=== PATIENT | male | born 1970 | race Caucasian/White ===

== ENCOUNTER 2017-07-17 21:38 | Emergency (ER) | payer OTHER ==
--- NOTE | 2017-07-17 22:02 | EDM.PDOC ---
ED HPI GENERAL MEDICAL PROBLEM - General Chief Complaint: Neck Problem Stated Complaint: NECK PAIN Time Seen by Provider: 07/17/17 22:00 Source of Information: Reports: Patient - History of Present Illness INITIAL COMMENTS - FREE TEXT/NARRATIVE: HISTORY AND PHYSICAL: History of present illness: [Patient presents with neck pain on the right side right trapezius distribution actually 5 out of 10 nonradiating worsen with head movement, pain is related to a remote incident where a garage door fell on his head 16 years ago her attributed to this has no recent injury or trauma he's just been having spasms over the last few days no known injury no vertebral point tenderness no fever nausea vomiting chills sweats no chest pain shortness breath headache dizziness palpitation no bowel or urine symptoms] Review of systems: As per history of present illness and below otherwise all systems reviewed and negative. Past medical history: As per history of present illness and as reviewed below otherwise noncontributory. Surgical history: As per history of present illness and as reviewed below otherwise noncontributory. Social history: No reported history of drug or alcohol abuse. Family history: As per history of present illness and as reviewed below otherwise noncontributory. Physical exam: HEENT: Atraumatic, normocephalic, pupils reactive, negative for conjunctival pallor or scleral icterus, mucous membranes moist, throat clear, neck supple, nontender, trachea midline. Lungs: Clear to auscultation, breath sounds equal bilaterally, chest nontender. Heart: S1S2, regular, negative for clicks, rubs, or JVD. Abdomen: Soft, nondistended, nontender. Negative for masses or hepatosplenomegaly. Negative for costovertebral tenderness. Pelvis: Stable nontender. Genitourinary: Deferred. Rectal: Deferred. Extremities: Atraumatic, negative for cords or calf pain. Neurovascular unremarkable. Neuro: Awake, alert, oriented. Cranial nerves II through XII unremarkable. Cerebellum unremarkable. Motor and sensory unremarkable throughout. Exam nonfocal. Musculoskeletal no vertebral point tenderness I can reproduce spasm/appreciate spasm in her right trapezius distribution otherwise unremarkable Diagnostics: [Clinical] Therapeutics: [Cataflam Flexeril Ice] Impression: [ paraspinous muscle spasm/cervical ] Definitive disposition and diagnosis as appropriate pending reevaluation and review of above. nape Pain Score (Numeric/FACES): 10 - Related Data Allergies Allergy/AdvReac Type Severity Reaction Status Date / Time No Known Allergies Allergy Verified 07/17/17 21:51 Home Meds: Home Meds . [No Known Home Meds] 07/17/17 [History] Past Medical History - Past Health History Medical/Surgical History: Denies Medical/Surgical History Social & Family History - Family History Family Medical History: Noncontributory - Tobacco Use Smoking Status *Q: Current Every Day Smoker Years of Tobacco use: 30 Packs/Tins Daily: 1 - Recreational Drug Use Recreational Drug Use: No ED ROS GENERAL - Review of Systems Review Of Systems: ROS reveals no pertinent complaints other than HPI. ED EXAM, GENERAL - Physical Exam Exam: See Below Course - Vital Signs Last Recorded V/S: Last Vital Signs Temp 98.3 F 07/17/17 21:38 Pulse 89 07/17/17 21:38 Resp 18 07/17/17 21:38 BP 147/78 H 07/17/17 21:38 Pulse Ox 95 07/17/17 21:38 Departure - Departure Time of Disposition: 22:02 Disposition: Home, Self-Care 01 Condition: Good Clinical Impression: Muscle spasm - Discharge Information Referrals: PCP,None [Primary Care Provider] - Additional Instructions: Medication as prescribed Return if symptoms persist or worsen Follow-up with primary care in 2 weeks sooner as needed [facility] - Primary Care [address] [place] [address] The following information is given to patients seen in the emergency department who are being discharged to home. This information is to outline your options for follow-up care. We provide all patients seen in our emergency department with a follow-up referral. The need for follow-up, as well as the timing and circumstances, are variable depending upon the specifics of your emergency department visit. If you don't have a primary care physician on staff, we will provide you with a referral. We always advise you to contact your personal physician following an emergency department visit to inform them of the circumstance of the visit and for follow-up with them and/or the need for any referrals to a consulting specialist. The emergency department will also refer you to a specialist when appropriate. This referral assures that you have the opportunity for follow-up care with a specialist. All of these measure are taken in an effort to provide you with optimal care, which includes your follow-up. Under all circumstances we always encourage you to contact your private physician who remains a resource for coordinating your care. When calling for follow-up care, please make the office aware that this follow-up is from your recent emergency room visit. If for any reason you are refused follow-up, please contact the [facility] emergency department at and asked to speak to the emergency department charge nurse.
== END 2017-07-17 22:11 | disposition home or self-care (01) ==
LOC: MW.ED 21:38
DX: M62.838 Other muscle spasm (principal); F17.210 Nicotine dependence, cigarettes, uncomplicated
CPT/HCPCS: 99283

== ENCOUNTER 2017-12-20 23:49 | Observation (INO) | payer OTHER ==
--- NOTE | 2017-12-20 23:54 | EDM.PDOC ---
ED HPI GENERAL MEDICAL PROBLEM - General Chief Complaint: Abdominal Pain Stated Complaint: PAIN IN UPPER STOMACH UNDER RIBS Time Seen by Provider: 12/20/17 23:53 Source of Information: Reports: Patient History Limitations: Reports: No Limitations - History of Present Illness INITIAL COMMENTS - FREE TEXT/NARRATIVE: HISTORY AND PHYSICAL: History of present illness: 47-year-old male presenting to emergency department with c/c of upper abdominal pain 1 week. Patient states for the past week he has had worsening upper abdominal pain. It began on Sunday of last week. States that he has had some associated fever and chills with diaphoresis. Denies any chest pain, nausea, vomiting, diarrhea. Last bowel movement was last night which was hard. Denies a bloody stool or dark tarry stools. Does have a history of diabetes but secondary to weight loss is on no medications. Denies any recent foreign travel however was [place] all last week. No other close contacts have similar symptoms. No history of abdominal surgery. Currently denies any chest pain, palpitations, shortness of breath, syncopal episodes, or focal neurologic deficits. Abdomen is soft, nondistended, nonrigid, tender to palpation predominantly in the epigastric as well as left upper quadrant. Positive bowel sounds in all 4 quadrants Initial blood sugar 383 [id number]: CBC shows leukocytosis of 12,300, urinalysis unremarkable blood cultures and lactate pending H.Pylori Positive Lipase 6659 Hyponatremia 131 Review of systems: As per history of present illness and below otherwise all systems reviewed and negative. Past medical history: As per history of present illness and as reviewed below otherwise noncontributory. Surgical history: As per history of present illness and as reviewed below otherwise noncontributory. Social history: No reported history of drug or alcohol abuse. Family history: As per history of present illness and as reviewed below otherwise noncontributory. Physical exam: HEENT: Atraumatic, normocephalic, pupils reactive, negative for conjunctival pallor or scleral icterus, mucous membranes moist, throat clear, neck supple, nontender, trachea midline. Lungs: Clear to auscultation, breath sounds equal bilaterally, chest nontender. Heart: S1S2, regular, negative for clicks, rubs, or JVD. Abdomen: Soft, nondistended, epigastric tenderness. Negative for masses or hepatosplenomegaly. Negative for costovertebral tenderness. Pelvis: Stable nontender. Genitourinary: Deferred. Rectal: Deferred. Extremities: Atraumatic, negative for cords or calf pain. Neurovascular unremarkable. Neuro: Awake, alert, oriented. Cranial nerves II through XII unremarkable. Cerebellum unremarkable. Motor and sensory unremarkable throughout. Exam nonfocal. Diagnostics: CBC, CMP, UA/UC, H. pylori, lipase, CT abdomen pelvis Therapeutics: 1 L normal saline 1, Dilaudid 1 mg IV 2, famotidine 20 mg IV 1, Protonix, metronidazole, amoxicillin Impression: Hyponatremia 131 Positive H. pylori gastritis Pancreatitis acute Uncontrolled type II diabetes HgbA1C 9.1 Plan: CT abdomen did show mild retroperitoneal edema surrounding the body of the pancreas most likely representing acute pancreatitis secondary to significantly elevated lipase. I did call Dr. Iqbal, hospitalist, who agreed for admission for acute pancreatitis. In addition patient was found to be mildly hyponatremic at 131. He was also positive for H. pylori so started the patient on PPI, metronidazole, and Amoxicillin IV. Did talk with tele-pharmacy who recommended metronidazole 500 mg twice a day IV, amoxicillin 1000 mg IV twice a day, and 40 mg Protonix twice a day for IV therapy effective for H. pylori. Obviously, may switch to oral medication when able to tolerate after treatment of acute pancreatitis. In addition I did get a hemoglobin A1c secondary to patient's history of type 2 diabetes that he stated was diet-controlled. Hemoglobin A1c was 9.1 indicating uncontrolled type 2 diabetes. All the above was explained to the patient and he was admitted for acute pancreatitis. Definitive disposition and diagnosis as appropriate pending reevaluation and review of above. Abdomen Pain Score (Numeric/FACES): 8 - Related Data Allergies Allergy/AdvReac Type Severity Reaction Status Date / Time No Known Allergies Allergy Verified 12/20/17 23:59 Home Meds: Home Meds . [No Known Home Meds] 07/17/17 [History] Past Medical History - Past Health History Medical/Surgical History: Denies Medical/Surgical History Social & Family History - Family History Family Medical History: Noncontributory ED ROS GENERAL - Review of Systems Review Of Systems: ROS reveals no pertinent complaints other than HPI. ED EXAM, GENERAL - Physical Exam Exam: See Below Course - Vital Signs Last Recorded V/S: Last Vital Signs Temp 97.2 F 12/21/17 02:59 Pulse 77 12/21/17 02:59 Resp 18 12/21/17 02:59 BP 123/82 12/21/17 02:59 Pulse Ox 96 12/21/17 02:59 - Orders/Labs/Meds Orders: Active Orders 24 hr Category Date Time Status Abdomen Pelvis w Cont [CT] Stat Exams 12/21/17 00:15 Taken CULTURE BLOOD [BC] Stat Lab 12/21/17 01:07 Received CULTURE BLOOD [BC] Stat Lab 12/21/17 01:15 Received CULTURE URINE [RM] Stat Lab 12/21/17 00:28 Received LIPID PANEL [CHEM] Stat Lab 12/21/17 02:54 Ordered Sodium Chloride 0.9% [Saline Flush] Med 12/21/17 00:15 Active 10 ml FLUSH ASDIRECTED PRN Sodium Chloride 0.9% [Saline Flush] Med 12/21/17 00:15 Active 2.5 ml FLUSH ASDIRECTED PRN Sodium Chloride 0.9% [Saline Flush] Med 12/21/17 00:15 Active 2.5 ml FLUSH ASDIRECTED PRN Blood Culture x2 Reflex Set [OM.PC] Stat Oth 12/21/17 00:51 Ordered Saline Lock Insert [OM.PC] Stat Oth 12/21/17 00:15 Ordered Medication Orders Metronidazole 500 mg/ Premix 100 mls @ 100 mls/hr IV ONETIME ONE Stop: 12/21/17 04:13 Sodium Chloride (Saline Flush) 2.5 ml FLUSH ASDIRECTED PRN PRN Reason: Keep Vein Open Sodium Chloride (Saline Flush) 10 ml FLUSH ASDIRECTED PRN PRN Reason: Keep Vein Open Sodium Chloride (Saline Flush) 2.5 ml FLUSH ASDIRECTED PRN PRN Reason: Keep Vein Open Labs: Laboratory Tests 12/21/17 12/21/17 12/21/17 Range/Units 00:15 00:21 00:21 WBC 12.29 H (4.0-11.0) K/uL RBC 5.22 (4.50-5.90) M/uL Hgb 16.9 (13.0-17.0) g/dL Hct 46.7 (38.0-50.0) % MCV 89.5 (80.0-98.0) fL MCH 32.4 H (27.0-32.0) pg MCHC 36.2 (31.0-37.0) g/dL RDW Std Deviation 42.4 (28.0-62.0) fl RDW Coeff of Elroy 13 (11.0-15.0) % Plt Count 130 L (150-400) K/uL MPV 11.20 (7.40-12.00) fL Neut % (Auto) 74.0 (48.0-80.0) % Lymph % (Auto) 20.3 (16.0-40.0) % Franklin % (Auto) 4.7 (0.0-15.0) % Eos % (Auto) 0.8 (0.0-7.0) % Baso % (Auto) 0.2 (0.0-1.5) % Neut # (Auto) 9.1 H (1.4-5.7) K/uL Lymph # (Auto) 2.5 H (0.6-2.4) K/uL Franklin # (Auto) 0.6 (0.0-0.8) K/uL Eos # (Auto) 0.1 (0.0-0.7) K/uL Baso # (Auto) 0.0 (0.0-0.1) K/uL Nucleated RBC % 0.0 /100WBC Nucleated RBCs # 0 K/uL Lactate (0.20-2.00) mmol/L Sodium 131 L (136-148) mmol/L Potassium 4.1 (3.5-5.1) mmol/L Chloride 98 (98-107) mmol/L Carbon Dioxide 24.6 (21.0-32.0) mmol/L BUN 14 (7.0-18.0) mg/dL Creatinine 0.9 (0.8-1.3) mg/dL Est Cr Clr Drug Dosing 112.57 mL/min Estimated GFR (MDRD) > 60.0 ml/min Glucose 437 H (74-106) mg/dL POC Glucose 383 H (60-110) mg/dL Hemoglobin A1c (4.5-6.2) % Calcium 8.9 (8.5-10.1) mg/dL Total Bilirubin 0.5 (0.2-1.0) mg/dL AST 32 (15-37) IU/L ALT 50 (14-63) IU/L Alkaline Phosphatase 72 (46-116) U/L Total Protein 7.7 (6.4-8.2) g/dL Albumin 4.0 (3.4-5.0) g/dL Globulin 3.7 H (2.0-3.5) g/dL Albumin/Globulin Ratio 1.1 L (1.3-2.8) Lipase 6659 H (73-393) U/L Urine Color Urine Appearance Urine pH (5.0-8.0) Ur Specific Elwin (1.001-1.035) Urine Protein (NEGATIVE) mg/dL Urine Glucose (UA) (NEGATIVE) mg/dL Urine Ketones (NEGATIVE) mg/dL Urine Occult Blood (NEGATIVE) Urine Nitrite (NEGATIVE) Urine Bilirubin (NEGATIVE) Urine Urobilinogen (<2.0) EU/dL Ur Leukocyte Esterase (NEGATIVE) Urine RBC (0-2/HPF) Urine WBC (0-5/HPF) Ur Epithelial Cells (NONE-FEW) Urine Bacteria (NEGATIVE) Ethyl Alcohol mg/dL H. pylori IgG Antibody (NEG) 12/21/17 12/21/17 12/21/17 Range/Units 00:21 00:21 00:28 WBC (4.0-11.0) K/uL RBC (4.50-5.90) M/uL Hgb (13.0-17.0) g/dL Hct (38.0-50.0) % MCV (80.0-98.0) fL MCH (27.0-32.0) pg MCHC (31.0-37.0) g/dL RDW Std Deviation (28.0-62.0) fl RDW Coeff of Elroy (11.0-15.0) % Plt Count (150-400) K/uL MPV (7.40-12.00) fL Neut % (Auto) (48.0-80.0) % Lymph % (Auto) (16.0-40.0) % Franklin % (Auto) (0.0-15.0) % Eos % (Auto) (0.0-7.0) % Baso % (Auto) (0.0-1.5) % Neut # (Auto) (1.4-5.7) K/uL Lymph # (Auto) (0.6-2.4) K/uL Franklin # (Auto) (0.0-0.8) K/uL Eos # (Auto) (0.0-0.7) K/uL Baso # (Auto) (0.0-0.1) K/uL Nucleated RBC % /100WBC Nucleated RBCs # K/uL Lactate (0.20-2.00) mmol/L Sodium (136-148) mmol/L Potassium (3.5-5.1) mmol/L Chloride (98-107) mmol/L Carbon Dioxide (21.0-32.0) mmol/L BUN (7.0-18.0) mg/dL Creatinine (0.8-1.3) mg/dL Est Cr Clr Drug Dosing mL/min Estimated GFR (MDRD) ml/min Glucose (74-106) mg/dL POC Glucose (60-110) mg/dL Hemoglobin A1c 9.1 H (4.5-6.2) % Calcium (8.5-10.1) mg/dL Total Bilirubin (0.2-1.0) mg/dL AST (15-37) IU/L ALT (14-63) IU/L Alkaline Phosphatase (46-116) U/L Total Protein (6.4-8.2) g/dL Albumin (3.4-5.0) g/dL Globulin (2.0-3.5) g/dL Albumin/Globulin Ratio (1.3-2.8) Lipase (73-393) U/L Urine Color YELLOW Urine Appearance CLEAR Urine pH 6.0 (5.0-8.0) Ur Specific Elwin 1.010 (1.001-1.035) Urine Protein NEGATIVE (NEGATIVE) mg/dL Urine Glucose (UA) >=1000 (NEGATIVE) mg/dL Urine Ketones 15 H (NEGATIVE) mg/dL Urine Occult Blood TRACE-INTACT (NEGATIVE) Urine Nitrite NEGATIVE (NEGATIVE) Urine Bilirubin NEGATIVE (NEGATIVE) Urine Urobilinogen 0.2 (<2.0) EU/dL Ur Leukocyte Esterase NEGATIVE (NEGATIVE) Urine RBC 1-4 (0-2/HPF) Urine WBC 0-1 (0-5/HPF) Ur Epithelial Cells RARE (NONE-FEW) Urine Bacteria RARE (NEGATIVE) Ethyl Alcohol mg/dL H. pylori IgG Antibody POSITIVE H (NEG) 12/21/17 12/21/17 Range/Units 01:07 02:29 WBC (4.0-11.0) K/uL RBC (4.50-5.90) M/uL Hgb (13.0-17.0) g/dL Hct (38.0-50.0) % MCV (80.0-98.0) fL MCH (27.0-32.0) pg MCHC (31.0-37.0) g/dL RDW Std Deviation (28.0-62.0) fl RDW Coeff of Elroy (11.0-15.0) % Plt Count (150-400) K/uL MPV (7.40-12.00) fL Neut % (Auto) (48.0-80.0) % Lymph % (Auto) (16.0-40.0) % Franklin % (Auto) (0.0-15.0) % Eos % (Auto) (0.0-7.0) % Baso % (Auto) (0.0-1.5) % Neut # (Auto) (1.4-5.7) K/uL Lymph # (Auto) (0.6-2.4) K/uL Franklin # (Auto) (0.0-0.8) K/uL Eos # (Auto) (0.0-0.7) K/uL Baso # (Auto) (0.0-0.1) K/uL Nucleated RBC % /100WBC Nucleated RBCs # K/uL Lactate 1.0 (0.20-2.00) mmol/L Sodium (136-148) mmol/L Potassium (3.5-5.1) mmol/L Chloride (98-107) mmol/L Carbon Dioxide (21.0-32.0) mmol/L BUN (7.0-18.0) mg/dL Creatinine (0.8-1.3) mg/dL Est Cr Clr Drug Dosing mL/min Estimated GFR (MDRD) ml/min Glucose (74-106) mg/dL POC Glucose (60-110) mg/dL Hemoglobin A1c (4.5-6.2) % Calcium (8.5-10.1) mg/dL Total Bilirubin (0.2-1.0) mg/dL AST (15-37) IU/L ALT (14-63) IU/L Alkaline Phosphatase (46-116) U/L Total Protein (6.4-8.2) g/dL Albumin (3.4-5.0) g/dL Globulin (2.0-3.5) g/dL Albumin/Globulin Ratio (1.3-2.8) Lipase (73-393) U/L Urine Color Urine Appearance Urine pH (5.0-8.0) Ur Specific Elwin (1.001-1.035) Urine Protein (NEGATIVE) mg/dL Urine Glucose (UA) (NEGATIVE) mg/dL Urine Ketones (NEGATIVE) mg/dL Urine Occult Blood (NEGATIVE) Urine Nitrite (NEGATIVE) Urine Bilirubin (NEGATIVE) Urine Urobilinogen (<2.0) EU/dL Ur Leukocyte Esterase (NEGATIVE) Urine RBC (0-2/HPF) Urine WBC (0-5/HPF) Ur Epithelial Cells (NONE-FEW) Urine Bacteria (NEGATIVE) Ethyl Alcohol <3 mg/dL H. pylori IgG Antibody (NEG) Meds: Medications Generic Name Dose Route Start Last Admin Trade Name Freq PRN Reason Stop Dose Admin Metronidazole 500 mg/ Premix 100 mls @ 100 mls/hr 12/21/17 03:14 IV 12/21/17 04:13 ONETIME ONE Sodium Chloride 2.5 ml 12/21/17 00:15 Saline Flush FLUSH ASDIRECTED PRN Keep Vein Open Sodium Chloride 10 ml 12/21/17 00:15 Saline Flush FLUSH ASDIRECTED PRN Keep Vein Open Sodium Chloride 2.5 ml 12/21/17 00:15 Saline Flush FLUSH ASDIRECTED PRN Keep Vein Open Discontinued Medications Generic Name Dose Route Start Last Admin Trade Name Freq PRN Reason Stop Dose Admin Famotidine 20 mg 12/21/17 00:16 12/21/17 00:33 Pepcid IVPUSH 12/21/17 00:17 20 mg ONETIME ONE Administration Hydromorphone HCl 1 mg 12/21/17 00:15 12/21/17 00:33 Dilaudid IVPUSH 12/21/17 00:16 1 mg ONETIME ONE Administration Hydromorphone HCl 1 mg 12/21/17 01:28 12/21/17 01:33 Dilaudid IVPUSH 12/21/17 01:29 1 mg ONETIME ONE Administration Sodium Chloride 1,000 mls @ 999 mls/hr 12/21/17 00:15 12/21/17 00:33 Normal Saline IV 12/21/17 01:15 999 mls/hr BOLUS ONE Administration Sodium Chloride 1,000 mls @ 999 mls/hr 12/21/17 02:05 12/21/17 02:09 Normal Saline IV 12/21/17 03:05 999 mls/hr .Bolus ONE Administration Iopamidol 100 ml 12/21/17 02:22 12/21/17 02:23 Isovue Multipack-370 (76%) IVPUSH 12/21/17 02:23 100 ml ONETIME STA Administration Pantoprazole Sodium 80 mg 12/21/17 03:14 Protonix Iv IVPUSH 12/21/17 03:15 .BOLUS ONE Departure - Departure Time of Disposition: 03:26 Disposition: Admitted As Inpatient 67 Condition: Fair Clinical Impression: Helicobacter pylori (H. pylori) infection Acute pancreatitis Qualifiers: Pancreatitis type: unspecified pancreatitis type Acute pancreatitis complication: no infection or necrosis Qualified Code(s): K85.90 - Acute pancreatitis without necrosis or infection, unspecified Type 2 diabetes mellitus, uncontrolled Qualifiers: Glycemic state: with hyperglycemia Qualified Code(s): E11.65 - Type 2 diabetes mellitus with hyperglycemia - Discharge Information - My Orders Last 24 Hours: My Active Orders 12/21/17 00:15 Abdomen Pelvis w Cont [CT] Stat Sodium Chloride 0.9% [Saline Flush] 10 ml FLUSH ASDIRECTED PRN Sodium Chloride 0.9% [Saline Flush] 2.5 ml FLUSH ASDIRECTED PRN Sodium Chloride 0.9% [Saline Flush] 2.5 ml FLUSH ASDIRECTED PRN Saline Lock Insert [OM.PC] Stat 12/21/17 00:28 CULTURE URINE [RM] Stat 12/21/17 00:51 Blood Culture x2 Reflex Set [OM.PC] Stat 12/21/17 01:07 CULTURE BLOOD [BC] Stat 12/21/17 01:15 CULTURE BLOOD [BC] Stat 12/21/17 02:54 LIPID PANEL [CHEM] Stat - Assessment/Plan Last 24 Hours: My Active Orders 12/21/17 00:15 Abdomen Pelvis w Cont [CT] Stat Sodium Chloride 0.9% [Saline Flush] 10 ml FLUSH ASDIRECTED PRN Sodium Chloride 0.9% [Saline Flush] 2.5 ml FLUSH ASDIRECTED PRN Sodium Chloride 0.9% [Saline Flush] 2.5 ml FLUSH ASDIRECTED PRN Saline Lock Insert [OM.PC] Stat 12/21/17 00:28 CULTURE URINE [RM] Stat 12/21/17 00:51 Blood Culture x2 Reflex Set [OM.PC] Stat 12/21/17 01:07 CULTURE BLOOD [BC] Stat 12/21/17 01:15 CULTURE BLOOD [BC] Stat 12/21/17 02:54 LIPID PANEL [CHEM] Stat
[2017-12-21] MEDS ORDERED: Sodium Chloride 0.9% 10 ML Syringe FLUSH PRN (00:15)
[2017-12-21] MEDS ORDERED: Sodium Chloride 0.9% 1,000 ML IV ONE ×2 (00:15→02:05)
[2017-12-21] MEDS ORDERED: Sodium Chloride 0.9% 2.5 ML Syringe FLUSH PRN ×2 (00:15)
[2017-12-21] MEDS ORDERED: HYDROmorphone 2 MG/ML SDV IVPUSH ONE (00:15)
[2017-12-21] MEDS ORDERED: Famotidine 20 MG/2 ML SDV IVPUSH ONE (00:16)
[2017-12-21 01:05] LABS: CHLORIDE,CL 98 mmol/L (98-107); SODIUM,NA 131 mmol/L (136-148)
[2017-12-21] MEDS ORDERED: HYDROmorphone 1 MG/ML Syringe IVPUSH ONE (01:28)
[2017-12-21] MEDS ORDERED: Iopamidol 755 MG/ML 500 ML Multipack Bottle IVPUSH STA (02:22)
[2017-12-21] MEDS ORDERED: Pantoprazole 40 MG Vial IVPUSH ONE (03:14)
[2017-12-21] MEDS ORDERED: metroNIDAZOLE/Normal Saline 500 MG in Premix Bag 1 BAG IV ONE (03:14)
[2017-12-21] MEDS ORDERED: Morphine 2 MG/ML Syringe IVPUSH PRN (05:13)
[2017-12-21] MEDS: Sodium Chloride 0.9% 1,000 ML IV SCH ×3 (06:17→21:52)
[2017-12-21] MEDS: Insulin Aspart 100 Units/ML 3 ML Pen SUBCUT SCH ×4 (06:49→20:58)
[2017-12-21] MEDS: Pantoprazole 40 MG Vial IVPUSH SCH ×2 (08:21→21:03)
--- NOTE | 2017-12-21 08:59 | PCM.HP ---
<Adolfo Ross - Last Filed: 12/21/17 08:53> H&P History of Present Illness - General Date of Service: 12/21/17 Admit Problem/Dx: Admission Diagnosis/Problem Admission Diagnosis/Problem Acute pancreatitis Source of Information: Patient - History of Present Illness Initial Comments - Free Text/Narative: 47M hx of gallstones, T2DM, obesity that presented to the ER with a chief complaint of abdominal pain x1 week. Says the pain is located in the upper quadrants, pointing at his epigastric region, describes it as a "band across". Has been able to tolerate PO over the past week without issue. No diarrhea/ constipation. No etoh use. Says he drinks once or twice a year and hasn't recently at all. This AM, pain is persistent but he denies fever/nausea/ vomiting. Hes eager to eat. Lipid panel shows TG 1407, lipase 6659. Mild leukocytosis, H. Pylori +. A1c 9.1%, not on any DM management. Urine + Ketones, bicarb appears unremarkable. Glucose ~300, not in DKA. CT abdomen - retroperitoneal edema surrounding the body of the pancreas. Abdomen Pain Score (Numeric/FACES): 8 - Related Data Allergies/Adverse Reactions: Allergies Allergy/AdvReac Type Severity Reaction Status Date / Time No Known Allergies Allergy Verified 12/20/17 23:59 Home Medications: Home Meds . [No Known Home Meds] 07/17/17 [History] Past Medical History - Past Health History Medical/Surgical History: Denies Medical/Surgical History HEENT History: Reports: None Cardiovascular History: Reports: None Respiratory History: Reports: None Gastrointestinal History: Reports: None Genitourinary History: Reports: Renal Calculus Musculoskeletal History: Reports: None Neurological History: Reports: None Psychiatric History: Reports: None Endocrine/Metabolic History: Reports: Diabetes, Type II, Obesity/BMI 30+ Hematologic History: Reports: None Immunologic History: Reports: None Oncologic (Cancer) History: Reports: None Dermatologic History: Reports: None - Infectious Disease History Infectious Disease History: Reports: None - Past Surgical History Respiratory Surgical History: Reports: None GI Surgical History: Reports: None Male Surgical History: Reports: None Endocrine Surgical History: Reports: None Neurological Surgical History: Reports: None Musculoskeletal Surgical History: Reports: Other (See Below) Other Musculoskeletal Surgeries/Procedures:: left elbow reconstruction Oncologic Surgical History: Reports: None Social & Family History - Family History Family Medical History: Noncontributory - Tobacco Use Smoking Status *Q: Current Every Day Smoker Years of Tobacco use: 36 Packs/Tins Daily: 1 Second Hand Smoke Exposure: Yes - Caffeine Use Caffeine Use: Reports: Soda - Recreational Drug Use Recreational Drug Use: No H&P Review of Systems - Review of Systems: Review Of Systems: ROS reveals no pertinent complaints other than HPI. Exam - Exam Exam: See Below - Vital Signs Vital Signs: Last Vital Signs Temp 36.6 C 12/21/17 08:00 Pulse 74 12/21/17 08:00 Resp 15 12/21/17 08:00 BP 138/82 12/21/17 08:00 Pulse Ox 92 L 12/21/17 08:00 Weight: 112.037 kg - Exam HEENT: PERRLA, Hearing Intact, Mucosa Moist & [place], Nares Patent, Normal Nasal Septum, Posterior Pharynx Clear, Conjunctiva Clear, EOMI, EACs Clear, TMs Clear Neck: Supple, Trachea Midline, 2 Lungs: Clear to Auscultation, Normal Respiratory Effort Cardiovascular: Regular Rate, Regular Rhythm GI/Abdominal Exam: Other (tender to palpation in epigastric region, no rebound tenderness. no RUQ tenderness. BS+) Back Exam: Normal Inspection. No: CVA Tenderness (L), CVA Tenderness (R) Extremities: Normal Inspection Neurological: Cranial Nerves Intact Neuro Extensive - Mental Status: Alert, Oriented x3 DTR: 2+: Patella (L), Patella (R) Psychiatric: Alert, Normal Affect, Normal Mood - Patient Data Lab Results Last 24 hrs: Laboratory Results - last 24 hr 12/21/17 12/21/17 12/21/17 Range/Units 00:15 00:21 00:21 WBC 12.29 H (4.0-11.0) K/uL RBC 5.22 (4.50-5.90) M/uL Hgb 16.9 (13.0-17.0) g/dL Hct 46.7 (38.0-50.0) % MCV 89.5 (80.0-98.0) fL MCH 32.4 H (27.0-32.0) pg MCHC 36.2 (31.0-37.0) g/dL RDW Std Deviation 42.4 (28.0-62.0) fl RDW Coeff of Elroy 13 (11.0-15.0) % Plt Count 130 L (150-400) K/uL MPV 11.20 (7.40-12.00) fL Neut % (Auto) 74.0 (48.0-80.0) % Lymph % (Auto) 20.3 (16.0-40.0) % George % (Auto) 4.7 (0.0-15.0) % Eos % (Auto) 0.8 (0.0-7.0) % Baso % (Auto) 0.2 (0.0-1.5) % Neut # (Auto) 9.1 H (1.4-5.7) K/uL Lymph # (Auto) 2.5 H (0.6-2.4) K/uL George # (Auto) 0.6 (0.0-0.8) K/uL Eos # (Auto) 0.1 (0.0-0.7) K/uL Baso # (Auto) 0.0 (0.0-0.1) K/uL Nucleated RBC % 0.0 /100WBC Nucleated RBCs # 0 K/uL Lactate (0.20-2.00) mmol/L Sodium 131 L (136-148) mmol/L Potassium 4.1 (3.5-5.1) mmol/L Chloride 98 (98-107) mmol/L Carbon Dioxide 24.6 (21.0-32.0) mmol/L BUN 14 (7.0-18.0) mg/dL Creatinine 0.9 (0.8-1.3) mg/dL Est Cr Clr Drug Dosing 112.57 mL/min Estimated GFR (MDRD) > 60.0 ml/min Glucose 437 H (74-106) mg/dL POC Glucose 383 H (60-110) mg/dL Hemoglobin A1c (4.5-6.2) % Calcium 8.9 (8.5-10.1) mg/dL Total Bilirubin 0.5 (0.2-1.0) mg/dL AST 32 (15-37) IU/L ALT 50 (14-63) IU/L Alkaline Phosphatase 72 (46-116) U/L Total Protein 7.7 (6.4-8.2) g/dL Albumin 4.0 (3.4-5.0) g/dL Globulin 3.7 H (2.0-3.5) g/dL Albumin/Globulin Ratio 1.1 L (1.3-2.8) Triglycerides (0-200) mg/dL Cholesterol (50-200) mg/dL HDL Cholesterol (40-60) mg/dL Cholesterol/HDL Ratio (3.3-6.0) Lipase 6659 H (73-393) U/L Urine Color Urine Appearance Urine pH (5.0-8.0) Ur Specific [place] (1.001-1.035) Urine Protein (NEGATIVE) mg/dL Urine Glucose (UA) (NEGATIVE) mg/dL Urine Ketones (NEGATIVE) mg/dL Urine Occult Blood (NEGATIVE) Urine Nitrite (NEGATIVE) Urine Bilirubin (NEGATIVE) Urine Urobilinogen (<2.0) EU/dL Ur Leukocyte Esterase (NEGATIVE) Urine RBC (0-2/HPF) Urine WBC (0-5/HPF) Ur Epithelial Cells (NONE-FEW) Urine Bacteria (NEGATIVE) Ethyl Alcohol mg/dL H. pylori IgG Antibody (NEG) 12/21/17 12/21/17 12/21/17 Range/Units 00:21 00:21 00:28 WBC (4.0-11.0) K/uL RBC (4.50-5.90) M/uL Hgb (13.0-17.0) g/dL Hct (38.0-50.0) % MCV (80.0-98.0) fL MCH (27.0-32.0) pg MCHC (31.0-37.0) g/dL RDW Std Deviation (28.0-62.0) fl RDW Coeff of Elroy (11.0-15.0) % Plt Count (150-400) K/uL MPV (7.40-12.00) fL Neut % (Auto) (48.0-80.0) % Lymph % (Auto) (16.0-40.0) % George % (Auto) (0.0-15.0) % Eos % (Auto) (0.0-7.0) % Baso % (Auto) (0.0-1.5) % Neut # (Auto) (1.4-5.7) K/uL Lymph # (Auto) (0.6-2.4) K/uL George # (Auto) (0.0-0.8) K/uL Eos # (Auto) (0.0-0.7) K/uL Baso # (Auto) (0.0-0.1) K/uL Nucleated RBC % /100WBC Nucleated RBCs # K/uL Lactate (0.20-2.00) mmol/L Sodium (136-148) mmol/L Potassium (3.5-5.1) mmol/L Chloride (98-107) mmol/L Carbon Dioxide (21.0-32.0) mmol/L BUN (7.0-18.0) mg/dL Creatinine (0.8-1.3) mg/dL Est Cr Clr Drug Dosing mL/min Estimated GFR (MDRD) ml/min Glucose (74-106) mg/dL POC Glucose (60-110) mg/dL Hemoglobin A1c 9.1 H (4.5-6.2) % Calcium (8.5-10.1) mg/dL Total Bilirubin (0.2-1.0) mg/dL AST (15-37) IU/L ALT (14-63) IU/L Alkaline Phosphatase (46-116) U/L Total Protein (6.4-8.2) g/dL Albumin (3.4-5.0) g/dL Globulin (2.0-3.5) g/dL Albumin/Globulin Ratio (1.3-2.8) Triglycerides (0-200) mg/dL Cholesterol (50-200) mg/dL HDL Cholesterol (40-60) mg/dL Cholesterol/HDL Ratio (3.3-6.0) Lipase (73-393) U/L Urine Color YELLOW Urine Appearance CLEAR Urine pH 6.0 (5.0-8.0) Ur Specific [place] 1.010 (1.001-1.035) Urine Protein NEGATIVE (NEGATIVE) mg/dL Urine Glucose (UA) >=1000 (NEGATIVE) mg/dL Urine Ketones 15 H (NEGATIVE) mg/dL Urine Occult Blood TRACE-INTACT (NEGATIVE) Urine Nitrite NEGATIVE (NEGATIVE) Urine Bilirubin NEGATIVE (NEGATIVE) Urine Urobilinogen 0.2 (<2.0) EU/dL Ur Leukocyte Esterase NEGATIVE (NEGATIVE) Urine RBC 1-4 (0-2/HPF) Urine WBC 0-1 (0-5/HPF) Ur Epithelial Cells RARE (NONE-FEW) Urine Bacteria RARE (NEGATIVE) Ethyl Alcohol mg/dL H. pylori IgG Antibody POSITIVE H (NEG) 12/21/17 12/21/17 12/21/17 Range/Units 01:07 02:29 02:54 WBC (4.0-11.0) K/uL RBC (4.50-5.90) M/uL Hgb (13.0-17.0) g/dL Hct (38.0-50.0) % MCV (80.0-98.0) fL MCH (27.0-32.0) pg MCHC (31.0-37.0) g/dL RDW Std Deviation (28.0-62.0) fl RDW Coeff of Elroy (11.0-15.0) % Plt Count (150-400) K/uL MPV (7.40-12.00) fL Neut % (Auto) (48.0-80.0) % Lymph % (Auto) (16.0-40.0) % George % (Auto) (0.0-15.0) % Eos % (Auto) (0.0-7.0) % Baso % (Auto) (0.0-1.5) % Neut # (Auto) (1.4-5.7) K/uL Lymph # (Auto) (0.6-2.4) K/uL George # (Auto) (0.0-0.8) K/uL Eos # (Auto) (0.0-0.7) K/uL Baso # (Auto) (0.0-0.1) K/uL Nucleated RBC % /100WBC Nucleated RBCs # K/uL Lactate 1.0 (0.20-2.00) mmol/L Sodium (136-148) mmol/L Potassium (3.5-5.1) mmol/L Chloride (98-107) mmol/L Carbon Dioxide (21.0-32.0) mmol/L BUN (7.0-18.0) mg/dL Creatinine (0.8-1.3) mg/dL Est Cr Clr Drug Dosing mL/min Estimated GFR (MDRD) ml/min Glucose (74-106) mg/dL POC Glucose (60-110) mg/dL Hemoglobin A1c (4.5-6.2) % Calcium (8.5-10.1) mg/dL Total Bilirubin (0.2-1.0) mg/dL AST (15-37) IU/L ALT (14-63) IU/L Alkaline Phosphatase (46-116) U/L Total Protein (6.4-8.2) g/dL Albumin (3.4-5.0) g/dL Globulin (2.0-3.5) g/dL Albumin/Globulin Ratio (1.3-2.8) Triglycerides 1407 H (0-200) mg/dL Cholesterol 185 (50-200) mg/dL HDL Cholesterol 16 L (40-60) mg/dL Cholesterol/HDL Ratio 11.6 H (3.3-6.0) Lipase (73-393) U/L Urine Color Urine Appearance Urine pH (5.0-8.0) Ur Specific [place] (1.001-1.035) Urine Protein (NEGATIVE) mg/dL Urine Glucose (UA) (NEGATIVE) mg/dL Urine Ketones (NEGATIVE) mg/dL Urine Occult Blood (NEGATIVE) Urine Nitrite (NEGATIVE) Urine Bilirubin (NEGATIVE) Urine Urobilinogen (<2.0) EU/dL Ur Leukocyte Esterase (NEGATIVE) Urine RBC (0-2/HPF) Urine WBC (0-5/HPF) Ur Epithelial Cells (NONE-FEW) Urine Bacteria (NEGATIVE) Ethyl Alcohol <3 mg/dL H. pylori IgG Antibody (NEG) 12/21/17 Range/Units 06:19 WBC (4.0-11.0) K/uL RBC (4.50-5.90) M/uL Hgb (13.0-17.0) g/dL Hct (38.0-50.0) % MCV (80.0-98.0) fL MCH (27.0-32.0) pg MCHC (31.0-37.0) g/dL RDW Std Deviation (28.0-62.0) fl RDW Coeff of [place]roy (11.0-15.0) % Plt Count (150-400) K/uL MPV (7.40-12.00) fL Neut % (Auto) (48.0-80.0) % Lymph % (Auto) (16.0-40.0) % George % (Auto) (0.0-15.0) % Eos % (Auto) (0.0-7.0) % Baso % (Auto) (0.0-1.5) % Neut # (Auto) (1.4-5.7) K/uL Lymph # (Auto) (0.6-2.4) K/uL George # (Auto) (0.0-0.8) K/uL Eos # (Auto) (0.0-0.7) K/uL Baso # (Auto) (0.0-0.1) K/uL Nucleated RBC % /100WBC Nucleated RBCs # K/uL Lactate (0.20-2.00) mmol/L Sodium (136-148) mmol/L Potassium (3.5-5.1) mmol/L Chloride (98-107) mmol/L Carbon Dioxide (21.0-32.0) mmol/L BUN (7.0-18.0) mg/dL Creatinine (0.8-1.3) mg/dL Est Cr Clr Drug Dosing mL/min Estimated GFR (MDRD) ml/min Glucose (74-106) mg/dL POC Glucose 298 H (60-110) mg/dL Hemoglobin A1c (4.5-6.2) % Calcium (8.5-10.1) mg/dL Total Bilirubin (0.2-1.0) mg/dL AST (15-37) IU/L ALT (14-63) IU/L Alkaline Phosphatase (46-116) U/L Total Protein (6.4-8.2) g/dL Albumin (3.4-5.0) g/dL Globulin (2.0-3.5) g/dL Albumin/Globulin Ratio (1.3-2.8) Triglycerides (0-200) mg/dL Cholesterol (50-200) mg/dL HDL Cholesterol (40-60) mg/dL Cholesterol/HDL Ratio (3.3-6.0) Lipase (73-393) U/L Urine Color Urine Appearance Urine pH (5.0-8.0) Ur Specific [place] (1.001-1.035) Urine Protein (NEGATIVE) mg/dL Urine Glucose (UA) (NEGATIVE) mg/dL Urine Ketones (NEGATIVE) mg/dL Urine Occult Blood (NEGATIVE) Urine Nitrite (NEGATIVE) Urine Bilirubin (NEGATIVE) Urine Urobilinogen (<2.0) EU/dL Ur Leukocyte Esterase (NEGATIVE) Urine RBC (0-2/HPF) Urine WBC (0-5/HPF) Ur Epithelial Cells (NONE-FEW) Urine Bacteria (NEGATIVE) Ethyl Alcohol mg/dL H. pylori IgG Antibody (NEG) Result Diagrams: 12/21/17 00:21 12/21/17 00:21 Problem List Initiated/Reviewed/Updated: Yes Orders Last 24hrs: Active Orders 24 hr Category Date Time Status Admission Status [Patient Status] [ADT] Stat ADT 12/21/17 03:04 Active Blood Glucose Check, Bedside [RC] QIDACANDBED Care 12/21/17 07:00 Active NPO [Nothing Per Oral Diet] [DIET] Diet 12/21/17 Breakfast Active Abdomen Ltd [US] Routine Exams 12/21/17 06:52 Ordered Abdomen Pelvis w Cont [CT] Stat Exams 12/21/17 00:15 Taken CULTURE BLOOD [BC] Stat Lab 12/21/17 01:07 Received CULTURE BLOOD [BC] Stat Lab 12/21/17 01:15 Received CULTURE URINE [RM] Stat Lab 12/21/17 00:28 Received Insulin Aspart [NovoLOG] Med 12/21/17 07:30 Active See Protocol SUBCUT ACBED Morphine Med 12/21/17 05:13 Active 2 mg IVPUSH Q2H PRN Pantoprazole [ProTONIX IV] Med 12/21/17 09:00 Active 40 mg IVPUSH BID Sodium Chloride 0.9% [Normal Saline] 1,000 ml Med 12/21/17 05:15 Active IV ASDIRECTED Sodium Chloride 0.9% [Saline Flush] Med 12/21/17 00:15 Active 10 ml FLUSH ASDIRECTED PRN Sodium Chloride 0.9% [Saline Flush] Med 12/21/17 00:15 Active 2.5 ml FLUSH ASDIRECTED PRN Sodium Chloride 0.9% [Saline Flush] Med 12/21/17 00:15 Active 2.5 ml FLUSH ASDIRECTED PRN Blood Culture x2 Reflex Set [OM.PC] Stat Oth 12/21/17 00:51 Ordered Saline Lock Insert [OM.PC] Stat Oth 12/21/17 00:15 Ordered Medication Orders Sodium Chloride (Normal Saline) 1,000 mls @ 125 mls/hr IV ASDIRECTED COUNT INCLUDES THE [facility] Last Admin: 12/21/17 06:17 Dose: 125 mls/hr Insulin Aspart (Novolog) 0 unit SUBCUT ACBED COUNT INCLUDES THE [facility]; Protocol Last Admin: 12/21/17 06:49 Dose: 6 units Morphine Sulfate (Morphine) 2 mg IVPUSH Q2H PRN PRN Reason: Pain Pantoprazole Sodium (Protonix Iv) 40 mg IVPUSH BID COUNT INCLUDES THE [facility] Last Admin: 12/21/17 08:21 Dose: 40 mg Sodium Chloride (Saline Flush) 2.5 ml FLUSH ASDIRECTED PRN PRN Reason: Keep Vein Open Sodium Chloride (Saline Flush) 10 ml FLUSH ASDIRECTED PRN PRN Reason: Keep Vein Open Sodium Chloride (Saline Flush) 2.5 ml FLUSH ASDIRECTED PRN PRN Reason: Keep Vein Open Assessment/Plan Comment:: Assessment: #1. Acute pancreatitis #2. Hypertriglyceridemia #3. History of gallstones #4. Elevated lipase secondary to #1 #5. Abdominal pain secondary to #1 #6. Mild leukocytosis Plan: #1. Admit to the floor for observation. Full code. Vital signs per floor routine. SCD for DVT prophylaxis #2. NPO. IVNS 150ml/h #3. IV Morphine 2mg PO q2h PRN pain #4. Insulin sliding scale TIDAC for T2DM. Will need a DM educator prior to DC and f/u with a PCP for this. #3. Obtain RUQ US to r/o galbladder pathology. I do expect this to be negative given exam and hepatic function but needs to be ruled out. Patient declines any etoh use. Other etiology for his pancreatitis can be his hypertriglyceridemia. Although very low on the differential, he did tell me when he was in [place] last week he noted a large "bug" in his room, doesnt recall a bite but says its possible he could have been bitten in his sleep. <Raciel Peoples - Last Filed: 12/21/17 09:29> H&P History of Present Illness - General Admit Problem/Dx: Admission Diagnosis/Problem Admission Diagnosis/Problem Acute pancreatitis I have seen and examined the patient independently of nuclear medicine medical director. The patient is an otherwise healthy 47-year-old gentleman who had presented to the emergency department with severe abdominal pain. The patient had been diagnosed there with acute pancreatitis that is also supported by CT scan as well as his lipase is 6659. The patient has denied alcohol use. Ultrasound of his right upper quadrant has been ordered to help exclude gallstones as a cause of his pancreatitis. He also says that he has been excessively thirsty and has had excessive urination and was noted to have a hemoglobin A1c of 9.1%. The patient is triglycerides were also elevated at 1407 mg/dL. He did have a history of diabetes which was admission had been diet-controlled. The patient was also tested and found to be positive for H. pylori infection. This will be treated upon discharge. I have reviewed and agree with the medical residents assessment and plan of care. Please see orders. Patient should be appropriate for discharge in 1-2 days depending upon his symptomology and lessening of his lipase. Exam - Vital Signs Vital Signs: Last Vital Signs Temp 36.6 C 12/21/17 08:00 Pulse 74 12/21/17 08:00 Resp 15 12/21/17 08:00 BP 138/82 12/21/17 08:00 Pulse Ox 92 L 12/21/17 08:00 - Patient Data Lab Results Last 24 hrs: Laboratory Results - last 24 hr 12/21/17 12/21/17 12/21/17 Range/Units 00:15 00:21 00:21 WBC 12.29 H (4.0-11.0) K/uL RBC 5.22 (4.50-5.90) M/uL Hgb 16.9 (13.0-17.0) g/dL Hct 46.7 (38.0-50.0) % MCV 89.5 (80.0-98.0) fL MCH 32.4 H (27.0-32.0) pg MCHC 36.2 (31.0-37.0) g/dL RDW Std Deviation 42.4 (28.0-62.0) fl RDW Coeff of [place]roy 13 (11.0-15.0) % Plt Count 130 L (150-400) K/uL MPV 11.20 (7.40-12.00) fL Neut % (Auto) 74.0 (48.0-80.0) % Lymph % (Auto) 20.3 (16.0-40.0) % George % (Auto) 4.7 (0.0-15.0) % Eos % (Auto) 0.8 (0.0-7.0) % Baso % (Auto) 0.2 (0.0-1.5) % Neut # (Auto) 9.1 H (1.4-5.7) K/uL Lymph # (Auto) 2.5 H (0.6-2.4) K/uL George # (Auto) 0.6 (0.0-0.8) K/uL Eos # (Auto) 0.1 (0.0-0.7) K/uL Baso # (Auto) 0.0 (0.0-0.1) K/uL Nucleated RBC % 0.0 /100WBC Nucleated RBCs # 0 K/uL Lactate (0.20-2.00) mmol/L Sodium 131 L (136-148) mmol/L Potassium 4.1 (3.5-5.1) mmol/L Chloride 98 (98-107) mmol/L Carbon Dioxide 24.6 (21.0-32.0) mmol/L BUN 14 (7.0-18.0) mg/dL Creatinine 0.9 (0.8-1.3) mg/dL Est Cr Clr Drug Dosing 112.57 mL/min Estimated GFR (MDRD) > 60.0 ml/min Glucose 437 H (74-106) mg/dL POC Glucose 383 H (60-110) mg/dL Hemoglobin A1c (4.5-6.2) % Calcium 8.9 (8.5-10.1) mg/dL Total Bilirubin 0.5 (0.2-1.0) mg/dL AST 32 (15-37) IU/L ALT 50 (14-63) IU/L Alkaline Phosphatase 72 (46-116) U/L Total Protein 7.7 (6.4-8.2) g/dL Albumin 4.0 (3.4-5.0) g/dL Globulin 3.7 H (2.0-3.5) g/dL Albumin/Globulin Ratio 1.1 L (1.3-2.8) Triglycerides (0-200) mg/dL Cholesterol (50-200) mg/dL HDL Cholesterol (40-60) mg/dL Cholesterol/HDL Ratio (3.3-6.0) Lipase 6659 H (73-393) U/L Urine Color Urine Appearance Urine pH (5.0-8.0) Ur Specific [place] (1.001-1.035) Urine Protein (NEGATIVE) mg/dL Urine Glucose (UA) (NEGATIVE) mg/dL Urine Ketones (NEGATIVE) mg/dL Urine Occult Blood (NEGATIVE) Urine Nitrite (NEGATIVE) Urine Bilirubin (NEGATIVE) Urine Urobilinogen (<2.0) EU/dL Ur Leukocyte Esterase (NEGATIVE) Urine RBC (0-2/HPF) Urine WBC (0-5/HPF) Ur Epithelial Cells (NONE-FEW) Urine Bacteria (NEGATIVE) Ethyl Alcohol mg/dL H. pylori IgG Antibody (NEG) 12/21/17 12/21/17 12/21/17 Range/Units 00:21 00:21 00:28 WBC (4.0-11.0) K/uL RBC (4.50-5.90) M/uL Hgb (13.0-17.0) g/dL Hct (38.0-50.0) % MCV (80.0-98.0) fL MCH (27.0-32.0) pg MCHC (31.0-37.0) g/dL RDW Std Deviation (28.0-62.0) fl RDW Coeff of [place]roy (11.0-15.0) % Plt Count (150-400) K/uL MPV (7.40-12.00) fL Neut % (Auto) (48.0-80.0) % Lymph % (Auto) (16.0-40.0) % George % (Auto) (0.0-15.0) % Eos % (Auto) (0.0-7.0) % Baso % (Auto) (0.0-1.5) % Neut # (Auto) (1.4-5.7) K/uL Lymph # (Auto) (0.6-2.4) K/uL George # (Auto) (0.0-0.8) K/uL Eos # (Auto) (0.0-0.7) K/uL Baso # (Auto) (0.0-0.1) K/uL Nucleated RBC % /100WBC Nucleated RBCs # K/uL Lactate (0.20-2.00) mmol/L Sodium (136-148) mmol/L Potassium (3.5-5.1) mmol/L Chloride (98-107) mmol/L Carbon Dioxide (21.0-32.0) mmol/L BUN (7.0-18.0) mg/dL Creatinine (0.8-1.3) mg/dL Est Cr Clr Drug Dosing mL/min Estimated GFR (MDRD) ml/min Glucose (74-106) mg/dL POC Glucose (60-110) mg/dL Hemoglobin A1c 9.1 H (4.5-6.2) % Calcium (8.5-10.1) mg/dL Total Bilirubin (0.2-1.0) mg/dL AST (15-37) IU/L ALT (14-63) IU/L Alkaline Phosphatase (46-116) U/L Total Protein (6.4-8.2) g/dL Albumin (3.4-5.0) g/dL Globulin (2.0-3.5) g/dL Albumin/Globulin Ratio (1.3-2.8) Triglycerides (0-200) mg/dL Cholesterol (50-200) mg/dL HDL Cholesterol (40-60) mg/dL Cholesterol/HDL Ratio (3.3-6.0) Lipase (73-393) U/L Urine Color YELLOW Urine Appearance CLEAR Urine pH 6.0 (5.0-8.0) Ur Specific [place] 1.010 (1.001-1.035) Urine Protein NEGATIVE (NEGATIVE) mg/dL Urine Glucose (UA) >=1000 (NEGATIVE) mg/dL Urine Ketones 15 H (NEGATIVE) mg/dL Urine Occult Blood TRACE-INTACT (NEGATIVE) Urine Nitrite NEGATIVE (NEGATIVE) Urine Bilirubin NEGATIVE (NEGATIVE) Urine Urobilinogen 0.2 (<2.0) EU/dL Ur Leukocyte Esterase NEGATIVE (NEGATIVE) Urine RBC 1-4 (0-2/HPF) Urine WBC 0-1 (0-5/HPF) Ur Epithelial Cells RARE (NONE-FEW) Urine Bacteria RARE (NEGATIVE) Ethyl Alcohol mg/dL H. pylori IgG Antibody POSITIVE H (NEG) 12/21/17 12/21/17 12/21/17 Range/Units 01:07 02:29 02:54 WBC (4.0-11.0) K/uL RBC (4.50-5.90) M/uL Hgb (13.0-17.0) g/dL Hct (38.0-50.0) % MCV (80.0-98.0) fL MCH (27.0-32.0) pg MCHC (31.0-37.0) g/dL RDW Std Deviation (28.0-62.0) fl RDW Coeff of Elroy (11.0-15.0) % Plt Count (150-400) K/uL MPV (7.40-12.00) fL Neut % (Auto) (48.0-80.0) % Lymph % (Auto) (16.0-40.0) % George % (Auto) (0.0-15.0) % Eos % (Auto) (0.0-7.0) % Baso % (Auto) (0.0-1.5) % Neut # (Auto) (1.4-5.7) K/uL Lymph # (Auto) (0.6-2.4) K/uL George # (Auto) (0.0-0.8) K/uL Eos # (Auto) (0.0-0.7) K/uL Baso # (Auto) (0.0-0.1) K/uL Nucleated RBC % /100WBC Nucleated RBCs # K/uL Lactate 1.0 (0.20-2.00) mmol/L Sodium (136-148) mmol/L Potassium (3.5-5.1) mmol/L Chloride (98-107) mmol/L Carbon Dioxide (21.0-32.0) mmol/L BUN (7.0-18.0) mg/dL Creatinine (0.8-1.3) mg/dL Est Cr Clr Drug Dosing mL/min Estimated GFR (MDRD) ml/min Glucose (74-106) mg/dL POC Glucose (60-110) mg/dL Hemoglobin A1c (4.5-6.2) % Calcium (8.5-10.1) mg/dL Total Bilirubin (0.2-1.0) mg/dL AST (15-37) IU/L ALT (14-63) IU/L Alkaline Phosphatase (46-116) U/L Total Protein (6.4-8.2) g/dL Albumin (3.4-5.0) g/dL Globulin (2.0-3.5) g/dL Albumin/Globulin Ratio (1.3-2.8) Triglycerides 1407 H (0-200) mg/dL Cholesterol 185 (50-200) mg/dL HDL Cholesterol 16 L (40-60) mg/dL Cholesterol/HDL Ratio 11.6 H (3.3-6.0) Lipase (73-393) U/L Urine Color Urine Appearance Urine pH (5.0-8.0) Ur Specific [place] (1.001-1.035) Urine Protein (NEGATIVE) mg/dL Urine Glucose (UA) (NEGATIVE) mg/dL Urine Ketones (NEGATIVE) mg/dL Urine Occult Blood (NEGATIVE) Urine Nitrite (NEGATIVE) Urine Bilirubin (NEGATIVE) Urine Urobilinogen (<2.0) EU/dL Ur Leukocyte Esterase (NEGATIVE) Urine RBC (0-2/HPF) Urine WBC (0-5/HPF) Ur Epithelial Cells (NONE-FEW) Urine Bacteria (NEGATIVE) Ethyl Alcohol <3 mg/dL H. pylori IgG Antibody (NEG) 12/21/17 Range/Units 06:19 WBC (4.0-11.0) K/uL RBC (4.50-5.90) M/uL Hgb (13.0-17.0) g/dL Hct (38.0-50.0) % MCV (80.0-98.0) fL MCH (27.0-32.0) pg MCHC (31.0-37.0) g/dL RDW Std Deviation (28.0-62.0) fl RDW Coeff of Elroy (11.0-15.0) % Plt Count (150-400) K/uL MPV (7.40-12.00) fL Neut % (Auto) (48.0-80.0) % Lymph % (Auto) (16.0-40.0) % George % (Auto) (0.0-15.0) % Eos % (Auto) (0.0-7.0) % Baso % (Auto) (0.0-1.5) % Neut # (Auto) (1.4-5.7) K/uL Lymph # (Auto) (0.6-2.4) K/uL George # (Auto) (0.0-0.8) K/uL Eos # (Auto) (0.0-0.7) K/uL Baso # (Auto) (0.0-0.1) K/uL Nucleated RBC % /100WBC Nucleated RBCs # K/uL Lactate (0.20-2.00) mmol/L Sodium (136-148) mmol/L Potassium (3.5-5.1) mmol/L Chloride (98-107) mmol/L Carbon Dioxide (21.0-32.0) mmol/L BUN (7.0-18.0) mg/dL Creatinine (0.8-1.3) mg/dL Est Cr Clr Drug Dosing mL/min Estimated GFR (MDRD) ml/min Glucose (74-106) mg/dL POC Glucose 298 H (60-110) mg/dL Hemoglobin A1c (4.5-6.2) % Calcium (8.5-10.1) mg/dL Total Bilirubin (0.2-1.0) mg/dL AST (15-37) IU/L ALT (14-63) IU/L Alkaline Phosphatase (46-116) U/L Total Protein (6.4-8.2) g/dL Albumin (3.4-5.0) g/dL Globulin (2.0-3.5) g/dL Albumin/Globulin Ratio (1.3-2.8) Triglycerides (0-200) mg/dL Cholesterol (50-200) mg/dL HDL Cholesterol (40-60) mg/dL Cholesterol/HDL Ratio (3.3-6.0) Lipase (73-393) U/L Urine Color Urine Appearance Urine pH (5.0-8.0) Ur Specific [place] (1.001-1.035) Urine Protein (NEGATIVE) mg/dL Urine Glucose (UA) (NEGATIVE) mg/dL Urine Ketones (NEGATIVE) mg/dL Urine Occult Blood (NEGATIVE) Urine Nitrite (NEGATIVE) Urine Bilirubin (NEGATIVE) Urine Urobilinogen (<2.0) EU/dL Ur Leukocyte Esterase (NEGATIVE) Urine RBC (0-2/HPF) Urine WBC (0-5/HPF) Ur Epithelial Cells (NONE-FEW) Urine Bacteria (NEGATIVE) Ethyl Alcohol mg/dL H. pylori IgG Antibody (NEG) Result Diagrams: 12/21/17 00:21 12/21/17 00:21 Orders Last 24hrs: Active Orders 24 hr Category Date Time Status Admission Status [Patient Status] [ADT] Stat ADT 12/21/17 03:04 Active Blood Glucose Check, Bedside [RC] QIDACANDBED Care 12/21/17 07:00 Active NPO [Nothing Per Oral Diet] [DIET] Diet 12/21/17 Breakfast Active Abdomen Ltd [US] Routine Exams 12/21/17 06:52 Taken Abdomen Pelvis w Cont [CT] Stat Exams 12/21/17 00:15 Taken CULTURE BLOOD [BC] Stat Lab 12/21/17 01:07 Received CULTURE BLOOD [BC] Stat Lab 12/21/17 01:15 Received CULTURE URINE [RM] Stat Lab 12/21/17 00:28 Received Insulin Aspart [NovoLOG] Med 12/21/17 07:30 Active See Protocol SUBCUT ACBED Morphine Med 12/21/17 05:13 Active 2 mg IVPUSH Q2H PRN Pantoprazole [ProTONIX IV] Med 12/21/17 09:00 Active 40 mg IVPUSH BID Sodium Chloride 0.9% [Normal Saline] 1,000 ml Med 12/21/17 05:15 Active IV ASDIRECTED Sodium Chloride 0.9% [Saline Flush] Med 12/21/17 00:15 Active 10 ml FLUSH ASDIRECTED PRN Sodium Chloride 0.9% [Saline Flush] Med 12/21/17 00:15 Active 2.5 ml FLUSH ASDIRECTED PRN Sodium Chloride 0.9% [Saline Flush] Med 12/21/17 00:15 Active 2.5 ml FLUSH ASDIRECTED PRN Blood Culture x2 Reflex Set [OM.PC] Stat Oth 12/21/17 00:51 Ordered SCD [Sequential Compression Device] [OM.PC] Routine Oth 12/21/17 09:11 Ordered Saline Lock Insert [OM.PC] Stat Oth 12/21/17 00:15 Ordered Medication Orders Sodium Chloride (Normal Saline) 1,000 mls @ 150 mls/hr IV ASDIRECTED AC Last Admin: 12/21/17 06:17 Dose: 125 mls/hr Insulin Aspart (Novolog) 0 unit SUBCUT ACBED AC; Protocol Last Admin: 12/21/17 06:49 Dose: 6 units Morphine Sulfate (Morphine) 2 mg IVPUSH Q2H PRN PRN Reason: Pain Pantoprazole Sodium (Protonix Iv) 40 mg IVPUSH BID AC Last Admin: 12/21/17 08:21 Dose: 40 mg Sodium Chloride (Saline Flush) 2.5 ml FLUSH ASDIRECTED PRN PRN Reason: Keep Vein Open Sodium Chloride (Saline Flush) 10 ml FLUSH ASDIRECTED PRN PRN Reason: Keep Vein Open Sodium Chloride (Saline Flush) 2.5 ml FLUSH ASDIRECTED PRN PRN Reason: Keep Vein Open
--- NOTE | 2017-12-21 11:35 | CT ---
EXAM DATE: 12/21/17 PATIENT'S AGE: 47 Patient: ANNIE CRAFT Facility: [place], [place] Site . Site : [id number] Study: CT Abdomen/Pelvis [id number]/28/2018 2:24:43 AM Ordering Physician: Fidencio Ross Final Report: INDICATION: Abdominal pain, mostly epigastric, for 6 days TECHNIQUE: CT Abdomen and pelvis with i.v. contrast. Coronal and sagittal reformats were obtained. CONTRAST: 100 mL Isovue 370 COMPARISON: None FINDINGS: Lower chest: Unremarkable. Liver: Moderate diffuse fatty infiltration of the liver is noted. Spleen: Unremarkable. Pancreas: Mild retroperitoneal edema seen surrounding the body of the pancreas. Gallbladder: Unremarkable. Kidney: Unremarkable. No kidney or ureteral stones or obstruction seen. Adrenal: Unremarkable. Bowel: Unremarkable. The appendix is normal in appearance and size. Vascular: Unremarkable. Lymph: Unremarkable. Peritoneum: Unremarkable. No pneumoperitoneum is seen. No significant ascites is noted. Pelvis: Unremarkable. Soft tissue: Unremarkable. Bone: Unremarkable for age. IMPRESSION: 1. Mild retroperitoneal edema seen surrounding the body of the pancreas. Correlation with amylase and lipase levels is recommended to exclude acute pancreatitis. Dictated by Osman Landeros MD @ 12/21/2017 2:43:24 AM Please note that all CT scans at this facility use dose modulation, iterative reconstruction, and/or weight-based dosing when appropriate to reduce radiation dose to as low as reasonably achievable. Dictated by: Osman Landeros MD @ 12/21/2017 02:43:27 (Electronic Signature) Report Signed by Proxy. [facility]
--- NOTE | 2017-12-21 14:48 | US ---
EXAMINATION: Right upper quadrant ultrasound HISTORY: Pancreatitis COMPARISON: 12/21/2017 TECHNIQUE: Grayscale and color Doppler imaging obtained of the right upper quadrant. FINDINGS: The pancreas is not optimally characterize. The liver is notably increased in generalized e chotexture without a focal hepatic mass. Gallbladder wall thickness is normal. No pericholecystic flu id or shadowing gallstones. Right kidney measures 11 cm [id number] without evidence of hydronephros is. Common bile duct is not well characterized. IMPRESSION: 1. Severe fatty infiltration of the liver.
[2017-12-21] MEDS ORDERED: Ibuprofen 600 MG Tab PO PRN (17:05)
[2017-12-22] MEDS: Sodium Chloride 0.9% 1,000 ML IV SCH (06:00)
[2017-12-22] MEDS: Insulin Aspart 100 Units/ML 3 ML Pen SUBCUT SCH ×2 (06:58→12:06)
[2017-12-22 07:00] LABS: CHLORIDE,CL 102 mmol/L (98-107); SODIUM,NA 134 mmol/L (136-148)
[2017-12-22] MEDS: Pantoprazole 40 MG Vial IVPUSH SCH (08:29)
--- NOTE | 2017-12-22 09:36 | PCM.DCSUM1 ---
<Adolfo Ross - Last Filed: 12/22/17 09:31> Discharge Summary - Hospital Course Free Text/Narrative:: Admission date: 12/21/2017 Discharge date: 12/22/2017 Admission diagnosis: #1. Acute pancreatitis #2. Hypertriglyceridemia #3. History of gallstones #4. Elevated lipase secondary to #1 #5. Abdominal pain secondary to #1 #6. Mild leukocytosis Discharge diagnosis: #1. Acute pancreatitis - clinically improved #2. Hypertriglyceridemia #3. History of gallstones - RUQ unremarkable aside from fatty liver #4. Elevated lipase secondary to #1 - improved #5. Abdominal pain secondary to #1 #6. Type 2 Diabetes Mellitus Hospital course: 47M with a history of prediabetes that presented to the ER with a chief complaint of epigastric abdominal pain x1 week that was progressively worsening. Patient denied etoh use, liver enzymes appeared unremarkable. RUQ US was obtained that showed a fatty liver but no galbladder pathology. Patient was kept NPO and hydrated, his pain resolved after one day. He was transitioned to a clear liquid diet, and then a diabetic diet which he tolerated well. Lipase was rechecked in the morning that was decreased significantly. Initial lipase >6000. Patient A1C was found to be 9.1%. Upon discharge, I placed the patient on Metformin, Atorvastatin and counselled on diabetes. We'll have the patient see me in clinic next week along with a referral to diabetic education. In terms of etiology for the pancreatitis it remains unclear, but it maybe secondary to his hypertriglyceridemia which was ~ 1400. Will consider starting fenofibrate in the clinic, as I don't want to start multiple medications at once. - Discharge Data Discharge Date: 12/22/17 Discharge Disposition: Home, Self-Care 01 Condition: Fair - Patient Instructions Diet: Diabetic Diet Activity: As Tolerated Driving: May Drive Today Showering/Bathing: May Shower Notify Provider of: Fever, Increased Pain, Swelling and Redness, Drainage, Nausea and/or Vomiting - Discharge Plan Prescriptions/Med Rec: atorvaSTATin Calcium [Lipitor] 40 mg PO DAILY 30 Days #30 tablet metFORMIN [Glucophage XR] 500 mg PO BIDMEALS 15 Days #30 tab.er Home Medications: Home Meds atorvaSTATin Calcium [Lipitor] 40 mg PO DAILY 30 Days #30 tablet 12/22/17 [Rx] metFORMIN [Glucophage XR] 500 mg PO BIDMEALS 15 Days #30 tab.er 12/22/17 [Rx] Other Amb Orders: Consult to Diabetic Nurse Specialist [CONS] Location: None Selected Patient Handouts: Atorvastatin tablets, Metformin tablets Referrals: Adolfo Ross MD [Resident] - - Patient Data Vitals - Most Recent: Last Vital Signs Temp 36.6 C 12/22/17 03:37 Pulse 76 12/22/17 03:37 Resp 18 12/22/17 03:37 BP 128/66 12/22/17 03:37 Pulse Ox 94 L 12/22/17 03:37 Weight - Most Recent: 112.037 kg I&O - Last 24 hours: Intake & Output 12/21/17 12/22/17 12/22/17 22:59 06:59 14:59 Intake Total 1500 Output Total 500 Balance -500 1500 Lab Results - Last 24 hrs: Laboratory Results - last 24 hr 12/21/17 12/21/17 12/21/17 Range/Units 11:40 16:21 20:50 Sodium (136-148) mmol/L Potassium (3.5-5.1) mmol/L Chloride (98-107) mmol/L Carbon Dioxide (21.0-32.0) mmol/L BUN (7.0-18.0) mg/dL Creatinine (0.8-1.3) mg/dL Est Cr Clr Drug Dosing mL/min Estimated GFR (MDRD) ml/min Glucose (74-106) mg/dL POC Glucose 229 H 203 H 266 H (60-110) mg/dL Calcium (8.5-10.1) mg/dL Total Bilirubin (0.2-1.0) mg/dL AST (15-37) IU/L ALT (14-63) IU/L Alkaline Phosphatase (46-116) U/L Total Protein (6.4-8.2) g/dL Albumin (3.4-5.0) g/dL Globulin (2.0-3.5) g/dL Albumin/Globulin Ratio (1.3-2.8) Lipase (73-393) U/L 12/22/17 12/22/17 12/22/17 Range/Units 06:27 06:27 06:33 Sodium 134 L (136-148) mmol/L Potassium 4.2 (3.5-5.1) mmol/L Chloride 102 (98-107) mmol/L Carbon Dioxide 23.1 (21.0-32.0) mmol/L BUN 7 (7.0-18.0) mg/dL Creatinine 0.8 (0.8-1.3) mg/dL Est Cr Clr Drug Dosing 126.64 mL/min Estimated GFR (MDRD) > 60.0 ml/min Glucose 249 H (74-106) mg/dL POC Glucose 211 H (60-110) mg/dL Calcium 8.8 (8.5-10.1) mg/dL Total Bilirubin 1.1 H (0.2-1.0) mg/dL AST 8 L (15-37) IU/L ALT 35 (14-63) IU/L Alkaline Phosphatase 42 L (46-116) U/L Total Protein 6.9 (6.4-8.2) g/dL Albumin 3.4 (3.4-5.0) g/dL Globulin 3.5 (2.0-3.5) g/dL Albumin/Globulin Ratio 1.0 L (1.3-2.8) Lipase 1208 H (73-393) U/L SOPHIE Results - Last 24 hrs: Microbiology 12/21/17 01:15 Aerobic Blood Culture - Preliminary Blood - Venous - Lab Draw NO GROWTH AFTER 1 DAY Anaerobic Blood Culture - Preliminary NO GROWTH AFTER 1 DAY 12/21/17 01:07 Aerobic Blood Culture - Preliminary Blood - Venous NO GROWTH AFTER 1 DAY Anaerobic Blood Culture - Preliminary NO GROWTH AFTER 1 DAY Med Orders - Current: Current Medications Sodium Chloride (Normal Saline) 1,000 mls @ 150 mls/hr IV ASDIRECTED COUNT INCLUDES THE [facility] Last Admin: 12/22/17 06:00 Dose: 125 mls/hr Ibuprofen (Motrin) 600 mg PO Q6H PRN PRN Reason: Pain Last Admin: 12/21/17 17:16 Dose: 600 mg Insulin Aspart (Novolog) 0 unit SUBCUT ACBED COUNT INCLUDES THE [facility]; Protocol Last Admin: 12/22/17 06:58 Dose: 4 units Morphine Sulfate (Morphine) 2 mg IVPUSH Q2H PRN PRN Reason: Pain Pantoprazole Sodium (Protonix Iv) 40 mg IVPUSH BID COUNT INCLUDES THE [facility] Last Admin: 12/22/17 08:29 Dose: 40 mg Sodium Chloride (Saline Flush) 2.5 ml FLUSH ASDIRECTED PRN PRN Reason: Keep Vein Open Sodium Chloride (Saline Flush) 10 ml FLUSH ASDIRECTED PRN PRN Reason: Keep Vein Open Sodium Chloride (Saline Flush) 2.5 ml FLUSH ASDIRECTED PRN PRN Reason: Keep Vein Open Discontinued Medications Famotidine (Pepcid) 20 mg IVPUSH ONETIME ONE Stop: 12/21/17 00:17 Last Admin: 12/21/17 00:33 Dose: 20 mg Hydromorphone HCl (Dilaudid) 1 mg IVPUSH ONETIME ONE Stop: 12/21/17 00:16 Last Admin: 12/21/17 00:33 Dose: 1 mg Hydromorphone HCl (Dilaudid) 1 mg IVPUSH ONETIME ONE Stop: 12/21/17 01:29 Last Admin: 12/21/17 01:33 Dose: 1 mg Sodium Chloride (Normal Saline) 1,000 mls @ 999 mls/hr IV BOLUS ONE Stop: 12/21/17 01:15 Last Admin: 12/21/17 00:33 Dose: 999 mls/hr Sodium Chloride (Normal Saline) 1,000 mls @ 999 mls/hr IV .Bolus ONE Stop: 12/21/17 03:05 Last Admin: 12/21/17 02:09 Dose: 999 mls/hr Metronidazole 500 mg/ Premix 100 mls @ 100 mls/hr IV ONETIME ONE Stop: 12/21/17 04:13 Last Admin: 12/21/17 03:54 Dose: 100 mls/hr Iopamidol (Isovue Multipack-370 (76%)) 100 ml IVPUSH ONETIME STA Stop: 12/21/17 02:23 Last Admin: 12/21/17 02:23 Dose: 100 ml Pantoprazole Sodium (Protonix Iv) 80 mg IVPUSH .BOLUS ONE Stop: 12/21/17 03:15 Last Admin: 12/21/17 03:53 Dose: 80 mg <Raciel Peoples - Last Filed: 12/22/17 16:45> Discharge Summary - Hospital Course HPI Initial Comments: I seen and examined the patient independently of medical transcription supervisor. The patient is a 47-year-old gentleman who presented to the emergency department on December 21, 2017 of a concern for severe abdominal pain. Upon admission to the emergency department the patient was noted to have a lipase of [address]659. CT scan of the patient's abdomen was consistent with pancreatitis. The patient has denied any alcohol use and he says he has a history of gallstones. An ultrasound of the patient's upper quadrant was obtained on December 21, 2017 which did not show any findings consistent with cholelithiasis or cholecystitis. It is show severe fatty infiltrate of the liver. Interestingly, the patient was also positive for H. pylori infection. The patient also had a hemoglobin A1c of 9.1% and he was discharged on metformin. The patient has been recommended to follow up with primary care physician with regards to his H. pylori infection and also recurrence of his previously diet controlled diabetes. I have reviewed and agree with the medical residents assessment and plan of care. Please see orders. - Patient Data Vitals - Most Recent: Last Vital Signs Temp 36.8 C 12/22/17 12:00 Pulse 79 12/22/17 12:00 Resp 16 12/22/17 12:00 BP 137/91 H 12/22/17 12:00 Pulse Ox 91 L 12/22/17 12:00 I&O - Last 24 hours: Intake & Output 12/22/17 12/22/17 12/22/17 06:59 14:59 22:59 Intake Total 1500 Balance 1500 Lab Results - Last 24 hrs: Laboratory Results - last 24 hr 12/21/17 12/21/17 12/21/17 Range/Units 11:40 16:21 20:50 Sodium (136-148) mmol/L Potassium (3.5-5.1) mmol/L Chloride (98-107) mmol/L Carbon Dioxide (21.0-32.0) mmol/L BUN (7.0-18.0) mg/dL Creatinine (0.8-1.3) mg/dL Est Cr Clr Drug Dosing mL/min Estimated GFR (MDRD) ml/min Glucose (74-106) mg/dL POC Glucose 229 H 203 H 266 H (60-110) mg/dL Calcium (8.5-10.1) mg/dL Total Bilirubin (0.2-1.0) mg/dL AST (15-37) IU/L ALT (14-63) IU/L Alkaline Phosphatase (46-116) U/L Total Protein (6.4-8.2) g/dL Albumin (3.4-5.0) g/dL Globulin (2.0-3.5) g/dL Albumin/Globulin Ratio (1.3-2.8) Lipase (73-393) U/L 12/22/17 12/22/17 12/22/17 Range/Units 06:27 06:27 06:33 Sodium 134 L (136-148) mmol/L Potassium 4.2 (3.5-5.1) mmol/L Chloride 102 (98-107) mmol/L Carbon Dioxide 23.1 (21.0-32.0) mmol/L BUN 7 (7.0-18.0) mg/dL Creatinine 0.8 (0.8-1.3) mg/dL Est Cr Clr Drug Dosing 126.64 mL/min Estimated GFR (MDRD) > 60.0 ml/min Glucose 249 H (74-106) mg/dL POC Glucose 211 H (60-110) mg/dL Calcium 8.8 (8.5-10.1) mg/dL Total Bilirubin 1.1 H (0.2-1.0) mg/dL AST 8 L (15-37) IU/L ALT 35 (14-63) IU/L Alkaline Phosphatase 42 L (46-116) U/L Total Protein 6.9 (6.4-8.2) g/dL Albumin 3.4 (3.4-5.0) g/dL Globulin 3.5 (2.0-3.5) g/dL Albumin/Globulin Ratio 1.0 L (1.3-2.8) Lipase 1208 H (73-393) U/L 12/22/17 Range/Units 11:18 Sodium (136-148) mmol/L Potassium (3.5-5.1) mmol/L Chloride (98-107) mmol/L Carbon Dioxide (21.0-32.0) mmol/L BUN (7.0-18.0) mg/dL Creatinine (0.8-1.3) mg/dL Est Cr Clr Drug Dosing mL/min Estimated GFR (MDRD) ml/min Glucose (74-106) mg/dL POC Glucose 270 H (60-110) mg/dL Calcium (8.5-10.1) mg/dL Total Bilirubin (0.2-1.0) mg/dL AST (15-37) IU/L ALT (14-63) IU/L Alkaline Phosphatase (46-116) U/L Total Protein (6.4-8.2) g/dL Albumin (3.4-5.0) g/dL Globulin (2.0-3.5) g/dL Albumin/Globulin Ratio (1.3-2.8) Lipase (73-393) U/L SOPHIE Results - Last 24 hrs: Microbiology 12/21/17 01:15 Aerobic Blood Culture - Preliminary Blood - Venous - Lab Draw NO GROWTH AFTER 1 DAY Anaerobic Blood Culture - Preliminary NO GROWTH AFTER 1 DAY 12/21/17 01:07 Aerobic Blood Culture - Preliminary Blood - Venous NO GROWTH AFTER 1 DAY Anaerobic Blood Culture - Preliminary NO GROWTH AFTER 1 DAY Med Orders - Current: Current Medications Discontinued Medications Famotidine (Pepcid) 20 mg IVPUSH ONETIME ONE Stop: 12/21/17 00:17 Last Admin: 12/21/17 00:33 Dose: 20 mg Hydromorphone HCl (Dilaudid) 1 mg IVPUSH ONETIME ONE Stop: 12/21/17 00:16 Last Admin: 12/21/17 00:33 Dose: 1 mg Hydromorphone HCl (Dilaudid) 1 mg IVPUSH ONETIME ONE Stop: 12/21/17 01:29 Last Admin: 12/21/17 01:33 Dose: 1 mg Sodium Chloride (Normal Saline) 1,000 mls @ 999 mls/hr IV BOLUS ONE Stop: 12/21/17 01:15 Last Admin: 12/21/17 00:33 Dose: 999 mls/hr Sodium Chloride (Normal Saline) 1,000 mls @ 999 mls/hr IV .Bolus ONE Stop: 12/21/17 03:05 Last Admin: 12/21/17 02:09 Dose: 999 mls/hr Metronidazole 500 mg/ Premix 100 mls @ 100 mls/hr IV ONETIME ONE Stop: 12/21/17 04:13 Last Admin: 12/21/17 03:54 Dose: 100 mls/hr Sodium Chloride (Normal Saline) 1,000 mls @ 150 mls/hr IV ASDIRECTED AC Last Admin: 12/22/17 06:00 Dose: 125 mls/hr Ibuprofen (Motrin) 600 mg PO Q6H PRN PRN Reason: Pain Last Admin: 12/21/17 17:16 Dose: 600 mg Insulin Aspart (Novolog) 0 unit SUBCUT ACBED COUNT INCLUDES THE [facility]; Protocol Last Admin: 12/22/17 12:06 Dose: 6 units Iopamidol (Isovue Multipack-370 (76%)) 100 ml IVPUSH ONETIME STA Stop: 12/21/17 02:23 Last Admin: 12/21/17 02:23 Dose: 100 ml Morphine Sulfate (Morphine) 2 mg IVPUSH Q2H PRN PRN Reason: Pain Pantoprazole Sodium (Protonix Iv) 80 mg IVPUSH .BOLUS ONE Stop: 12/21/17 03:15 Last Admin: 12/21/17 03:53 Dose: 80 mg Pantoprazole Sodium (Protonix Iv) 40 mg IVPUSH BID COUNT INCLUDES THE [facility] Last Admin: 12/22/17 08:29 Dose: 40 mg Sodium Chloride (Saline Flush) 2.5 ml FLUSH ASDIRECTED PRN PRN Reason: Keep Vein Open Sodium Chloride (Saline Flush) 10 ml FLUSH ASDIRECTED PRN PRN Reason: Keep Vein Open Sodium Chloride (Saline Flush) 2.5 ml FLUSH ASDIRECTED PRN PRN Reason: Keep Vein Open
== END 2017-12-22 12:25 | disposition home or self-care (01) ==
LOC: MW.ED 23:49 → INTOOBSV 12-21 03:04 → MW.MS 12-21 03:04
PROVIDERS: ADMIT Internal Medicine; ATTEND Internal Medicine
DX: K85.90 Acute pancreatitis without necrosis or infection, unspecified (principal); E78.1 Pure hyperglyceridemia; D72.829 Elevated white blood cell count, unspecified; E11.9 Type 2 diabetes mellitus without complications; F17.210 Nicotine dependence, cigarettes, uncomplicated; E66.9 Obesity, unspecified; Z68.33 Body mass index [BMI] 33.0-33.9, adult; Z87.19 Personal history of other diseases of the digestive system
CPT/HCPCS: 36415; 74177; 74177-26; 76705; 76705-26; 80053; 80061; 81001; 82962; 83036; 83605; 83690; 85025; 86677; 87040; 87086; 96361; 96374; 96375; 99284; 99285-25; A9270-GY; C9113; G0480; J1170; J1815-GY; J3490; J7040; Q9967